=== PATIENT | male | born 1990 | race Caucasian/White ===

== ENCOUNTER 2018-02-01 10:31 | Emergency (ER) | payer OTHER ==
[2018-02-01 11:10] VITALS: BP 110/68; PULSE 77; TEMP 98.5; BMI 21.7
--- NOTE | 2018-02-01 12:27 | PDOC ---
History of Present Illness - General Chief Complaint: Cold Symptoms Stated Complaint: WEAKNESS Time Seen by Provider: 02/01/18 11:25 - History of Present Illness Initial Comments: 27-year-old male without comorbidities presents for evaluation of fever chills and sore throat 3 days. Symptoms are relieved with Tylenol. 02/01/18 12:25 Past History - Past Medical History Allergies/Adverse Reactions: Allergies Allergy/AdvReac Type Severity Reaction Status Date / Time No Known Allergies Allergy Verified 02/01/18 11:07 Home Medications: Ambulatory Orders NK [No Known Home Medication] 02/01/18 COPD: No Other medical history: juvenile arthritis - Suicide/Smoking/Psychosocial Hx Smoking History: Current every day smoker Number of Cigarettes Smoked Daily: 8 Information on smoking cessation initiated: Yes 'Breaking Loose' booklet given: 02/01/18 Hx Alcohol Use: No Drug/Substance Use Hx: No Review of Systems - Review of Systems Constitutional: Yes: Chills, Diaphoresis, Fever, Night Sweats HEENTM: Yes: Throat Pain All Other Systems: Reviewed and Negative *Physical Exam - Vital Signs Last Vital Signs Temp Pulse Resp BP Pulse Ox 98.5 F 77 16 110/68 99 02/01/18 11:07 02/01/18 11:07 02/01/18 11:07 02/01/18 11:07 02/01/18 11:07 - Physical Exam Comments: HEAD: NC/AT EYES: Conjuntiva clear Ears: Canals and TM's normal NOSE: No d/c THROAT: Moist mucous membrances, oral pharanx injected, uvula midline NECK: Supple without adenopathy CARDIAC: S1 S2 LUNGS: CTA Full and Equal breath sounds ABDOMEN: Soft NT ND MS: Full ROM in all joints without edema NEUROLOGIC: No gross sensory or motor deficits, NVID SKIN: Normal color and temperature no lesions or rashes 02/01/18 12:25 ED Treatment Course - ADDITIONAL ORDERS Additional order review: 02/01/18 11:35 Group A Strep Rapid Antigen - Preliminary Throat *DC/Admit/Observation/Transfer Diagnosis at time of Disposition: Viral pharyngitis - Discharge Dispostion Disposition: HOME Condition at time of disposition: Stable - Referrals Referrals: Lacy Slaughter MD [Primary Care Provider] - - Patient Instructions Printed Discharge Instructions: Viral Pharyngitis, DI for Viral Pharyngitis Additional Instructions: Return to the emergency room should symptoms worsen or go unresolved. Please follow-up with her primary care physician one to 2 days for further evaluation and treatment options. Warm salt water gargles 3-5 times a day will help with your throat pain. Tylenol and Motrin as directed for pain and fever. Rapid strep negative today, cultures was ordered and sent - Post Discharge Activity
== END 2018-02-01 12:29 | disposition home or self-care (01) ==
LOC: JERFT 10:31
DX: J02.8 Acute pharyngitis due to other specified organisms (principal); F17.210 Nicotine dependence, cigarettes, uncomplicated
CPT/HCPCS: 87070; 87430; 99281-25

== ENCOUNTER 2020-04-22 23:01 | Emergency (ER) | payer SELFPAY ==
[2020-04-22 23:15] VITALS: BP 112/73; PULSE 94; TEMP 98.3; BMI 23.3
[2020-04-23 00:24] LABS: THROAT:GRP A STREP ANTIGEN Positive (Negative)
== END 2020-04-23 01:35 | disposition home or self-care (01) ==
LOC: JER 23:01
DX: J02.0 Streptococcal pharyngitis (principal)
CPT/HCPCS: 71046-TC-FY; 87880; 99283-25; C9803; U0003

== ENCOUNTER 2020-05-04 17:40 | Emergency (ER) | payer SELFPAY ==
[2020-05-04 17:55] VITALS: TEMP 99.4; BMI 23.3
[2020-05-04] MEDS ORDERED: DEXAMETHASONE SOD PHOSPHATE 4 MG/1 ML VIAL IVPUSH ONE (18:29)
[2020-05-04] MEDS ORDERED: ACETAMINOPHEN 1000 MG/100 ML VIAL (NON FORMULARY) IVPB ONE (18:29)
[2020-05-04] MEDS ORDERED: SODIUM CHLORIDE 0.9% 500 ML INFUS.BAG IV ONE ×2 (18:29→20:56)
[2020-05-04 19:07] LABS: BASO % 0.6 % (0-2.0); EOS % 4.3 % (0-4.5); HEMATOCRIT 45.1 % (35.4-49); HEMOGLOBIN 15.1 GM/dL (11.7-16.9); LYMPH % 36.4 % (8-40); MCHC 33.5 g/dl (32.0-35.9); MEAN CELL VOLUME 95.4 fl (80-96); MEAN PLT VOLUME 8.2 fl (7.5-11.1); MONO % 10.2 % (3.8-10.2); NEUT % 48.5 % (42.8-82.8); PLATELET COUNT 203 K/MM3 (134-434); RBC 4.73 M/mm3 (4.00-5.60); RDW 13.7 % (11.9-15.9); WHITE BLOOD COUNT 8.7 K/mm3 (4.0-10.0)
[2020-05-04 19:17] LABS: INR 0.92 (0.83-1.09); PROTHROMBIN TIME (PATIENT) 11.3 SEC (9.7-13.0)
[2020-05-04 19:19] LABS: ACTIVATED PTT 28.3 SECONDS (25.2-36.5)
[2020-05-04 19:33] LABS: CHLORIDE 114 mmol/L (98-107); POTASSIUM 3.8 mmol/L (3.5-5.1); SODIUM 146 mmol/L (136-145)
[2020-05-04 19:37] LABS: ANION GAP 8 MMOL/L (8-16); BLOOD UREA NITROGEN 6.3 mg/dL (7-18); CALCIUM 7.4 mg/dL (8.5-10.1); CO2 24 mmol/L (21-32); GLUCOSE,RANDOM 83 mg/dL (74-106)
[2020-05-04 19:39] LABS: BILIRUBIN,DIRECT 0.1 mg/dL (0.0-0.2); CREATININE 0.8 mg/dL (0.55-1.3); SGOT/AST 25 U/L (15-37); SGPT/ALT 34 U/L (13-61)
[2020-05-04 19:40] LABS: LDH 156 U/L (87-246)
[2020-05-04 19:41] LABS: BILIRUBIN,TOTAL 0.2 mg/dL (0.2-1); TOT PROT 6.7 g/dl (6.4-8.2)
[2020-05-04 19:43] LABS: ALK PHOS 73 U/L (45-117)
[2020-05-04 21:35] LABS: PH,URINE 7.5 (5.0-8.0); URINE APPEARANCE CLEAR; URINE BILIRUBIN NEGATIVE (NEGATIVE); URINE COLOR YELLOW; URINE GLUCOSE (UA) NEGATIVE (NEGATIVE); URINE KETONE NEGATIVE (NEGATIVE); URINE LEUK ESTERASE NEGATIVE (NEGATIVE); URINE NITRITE NEGATIVE (NEGATIVE); URINE PROTEIN NEGATIVE (NEGATIVE); URINE UROBILINOGEN 0.2 mg/dL (0.2-1.0)
[2020-05-05 00:33] VITALS: BP 128/70; PULSE 92
== END 2020-05-05 00:33 | disposition home or self-care (01) ==
LOC: JER 17:40
PROC: 3E033NZ Introduction of Analgesics, Hypnotics, Sedatives into Peripheral Vein, Percutaneous Approach (ICD-10-PCS; principal; 2020-05-04)
PROC: 3E033GC Introduction of Other Therapeutic Substance into Peripheral Vein, Percutaneous Approach (ICD-10-PCS; 2020-05-04)
DX: R06.02 Shortness of breath (principal); U07.1 COVID-19
CPT/HCPCS: 36415; 71045-TC-FY; 80053; 81003; 82248; 82550; 82728; 83605; 83615; 84484; 85025; 85379; 85610; 85730; 86140; 87040; 87086; 93005; 93010; 99285-25; C9803; J0131; U0003

== ENCOUNTER 2024-08-18 20:39 | Emergency (ER) | payer OTHER ==
[2024-08-18 21:03] VITALS: BMI 27.1
[2024-08-18] MEDS: SODIUM CHLORIDE 0.9% 500 ML INFUS.BAG IV ONE (21:24)
[2024-08-18] MEDS: LIDOCAINE 2%/EPINEPHRINE 1:100000 (50 ML MD VIAL) INF ONE (21:32)
[2024-08-18 21:37] LABS: ABSOLUTE IMMATURE GRANULOCYTES 0.03 x10^3/uL (0.0-0.031); BASOPHILS # 0.06 x10^3/uL (0.01-0.08); EOSINOPHIL % 2.2 % (0.8-7.0); EOSINOPHILS # 0.28 x10^3/uL (0.04-0.54); HEMATOCRIT 44.1 % (40.1-51.0); HEMOGLOBIN 14.7 g/dL (13.7-17.5); MCHC 33.3 g/dl (32.3-36.5); MEAN CELL VOLUME 93.4 fl (79.0-92.2); MEAN PLT VOLUME 10.4 fl (9.4-12.4); MONOCYTE # 1.45 x10^3/uL (0.30-0.82); MONOCYTE % 11.2 % (5.3-12.2); PLATELET COUNT 243 x10^3/uL (163-337); RDW 12.5 % (12.0-15.6)
[2024-08-18 21:48] LABS: INR 1.06 (0.83-1.09); PROTHROMBIN TIME (PATIENT) 11.5 SEC (9.7-13.0)
[2024-08-18 21:51] LABS: ACTIVATED PTT 30.6 SECONDS (25.2-36.5)
[2024-08-18 21:57] LABS: POTASSIUM 3.3 mmol/L (3.5-5.1)
[2024-08-18 21:59] LABS: CALCIUM 9.6 mg/dL (8.5-10.1)
[2024-08-18 22:00] LABS: ALBUMIN 3.9 g/dl (3.4-5.0); BLOOD UREA NITROGEN 10.2 mg/dL (7-18)
[2024-08-18 22:03] LABS: CREATININE 0.9 mg/dL (0.55-1.3)
[2024-08-18 22:04] LABS: BILIRUBIN,TOTAL 0.4 mg/dL (0.2-1); TOT PROT 7.4 g/dl (6.4-8.2)
[2024-08-18 22:08] VITALS: BP 135/89; PULSE 104; RESP 18; TEMP 98.5
[2024-08-18] MEDS ORDERED: POTASSIUM CHLORIDE TABS 20 MEQ TABLET.ER (FP) PO ONE (22:11)
[2024-08-18] MEDS: POTASSIUM CHLORIDE TABS 20 MEQ TABLET.ER (FP) PO ONE (22:12)
[2024-08-18 22:54] LABS: HIV INTERPRETATION NEGATIVE (NEGATIVE)
== END 2024-08-18 22:20 | disposition short-term general hospital (02) ==
LOC: JER 20:39
PROC: 0HQ1XZZ Repair Face Skin, External Approach (ICD-10-PCS; principal; 2024-08-18)
DX: S01.511A Laceration without foreign body of lip, initial encounter (principal); S01.81XA Laceration without foreign body of other part of head, initial encounter; R00.0 Tachycardia, unspecified; F10.90 Alcohol use, unspecified, uncomplicated; Y90.7 Blood alcohol level of 200-239 mg/100 ml; X99.8XXA Assault by other sharp object, initial encounter
CPT/HCPCS: 36415; 80053; 80307; 85025; 85610; 85730; 86705; 86803; 86850; 86900; 86901; 87340; 87389; 87517; 99285-25